=== PATIENT | male | born 1955 | race Caucasian/White ===

== ENCOUNTER 2017-07-26 21:51 | Emergency (ER) | payer MEDICAID ==
[2017-07-26 22:14] VITALS: PULSE 68; TEMP 98.4
--- NOTE | 2017-07-26 23:07 | C.PDOC ---
History Of Present Illness 61 y/o male with a history of DM presents to the ED with lower extremity swelling. Patient is complaining of right calf swelling which he noticed earlier today. Denies any recent travel or trauma. PMD: Dr. Maciel Subramanian Time Seen by Provider: 07/26/17 22:24 Chief Complaint (Nursing): Lower Extremity Problem/Injury History Per: Patient History/Exam Limitations: no limitations Onset/Duration Of Symptoms: Hrs Current Symptoms Are (Timing): Still Present Recent travel outside of the [place]: No Past Medical History Vital Signs: Last Vital Signs Temp 98.4 F 07/26/17 22:19 Pulse 68 07/26/17 23:45 Resp 20 07/26/17 23:45 BP 150/75 07/26/17 23:45 Pulse Ox 100 07/26/17 23:45 - Medical History PMH: Diabetes, HTN, Hypercholesterolemia Surgical History: No Surg Hx Family History: States: No Known Family Hx - Social History Hx Tobacco Use: No Hx Alcohol Use: No Hx Substance Use: No - Immunization History Hx Tetanus Toxoid Vaccination: No Hx Influenza Vaccination: No Hx Pneumococcal Vaccination: No Review Of Systems Except As Marked, All Systems Reviewed And Found Negative. Musculoskeletal: Positive for: Leg Pain (right calf edema) Physical Exam - Physical Exam Appears: Well, Non-toxic, No Acute Distress Skin: Normal Color, Warm, Dry Head: Atraumatic, Normacephalic Eye(s): bilateral: Normal Inspection, PERRL, EOMI Nose: Normal Throat: Normal Neck: Normal Cardiovascular: Rhythm Regular, No Murmur Respiratory: Normal Breath Sounds, No Decreased Breath Sounds Gastrointestinal/Abdominal: Normal Exam Back: Normal Inspection, No CVA Tenderness, No Vertebral Tenderness Extremity: Normal ROM, Calf Tenderness (right) Neurological/Psych: Oriented x3 ED Course And Treatment - Laboratory Results Result Diagrams: 07/26/17 23:08 07/26/17 23:08 O2 Sat by Pulse Oximetry: 96 (RA) Pulse Ox Interpretation: Normal Disposition - Disposition Disposition: HOME/ ROUTINE Disposition Time: 23:00 Condition: STABLE Additional Instructions: return to er with worsening symptoms or concerns. please return tomorrow at 8 am for ultrasound Instructions: Deep Vein Thrombosis (Blood Clots in the Legs) (DC), Dependent Edema (DC) Forms: [employer] (Nauruan) - Clinical Impression Clinical Impression: Leg swelling
[2017-07-26 23:13] LABS: BASO % 0.6 % (0.0-2.0); EOS # 0.2 K/uL (0.0-0.7); EOS % 3.3 % (0.0-4.0); HEMOGLOBIN 13.1 g/dL (12.0-18.0); LYMPH # 2.4 K/uL (1.0-4.3); LYMPH % 46.3 % (20.0-40.0); MEAN CELL VOLUME 87.1 fL (80.0-94.0); MEAN CORPUSCULAR HEMOGLOBIN 30.7 pg (27.0-31.0); MEAN CORPUSCULAR HGB CONC 35.3 g/dL (33.0-37.0); MEAN PLATELET VOLUME 8.3 fL (7.2-11.7); MONO # 0.5 K/uL (0.0-0.8); MONO % 10.3 % (0.0-10.0); NEUT # 2.1 K/uL (1.8-7.0); NEUT % 39.5 % (50.0-75.0); NRBC % 0.2 % (0.0-2.0); RBC 4.26 Mil/uL (4.40-5.90); RED CELL DISTRIBUTION WIDTH 13.4 % (11.5-14.5); WHITE BLOOD COUNT 5.2 K/uL (4.8-10.8)
[2017-07-26 23:23] LABS: ALB/GLOB RATIO 1.2 (1.0-2.1); ALBUMIN 3.7 g/dL (3.5-5.0); ALT/SGPT 21 U/L (21-72); AST/SGOT 18 U/L (17-59); BLOOD UREA NITROGEN 13 mg/dL (9-20); CALCIUM 8.4 mg/dl (8.6-10.4); GFR AFRICAN-AMERICAN > 60; GFR NON-AFRICAN AMERICAN > 60
[2017-07-26 23:27] LABS: PROTHROMBIN TIME 10.9 SECONDS (9.7-12.2)
[2017-07-26] MEDS ORDERED: Enoxaparin 150 mg Syringe SC STA (23:34)
[2017-07-27] MEDS ORDERED: Enoxaparin 100 mg Syringe ONE (00:07)
[2017-07-27] MEDS ORDERED: Enoxaparin 30 mg Syringe ONE (00:08)
[2017-07-27 00:22] VITALS: BP 150/75; RESP 20
[2017-07-31 13:31] VITALS: O2SAT 96
== END 2017-07-26 23:45 | disposition home or self-care (01) ==
LOC: C.ER 21:51
DX: M79.89 Other specified soft tissue disorders (principal)
CPT/HCPCS: 80053; 85025; 85378; 85610; 85730; 96372; 99285; J1650

== ENCOUNTER 2017-07-27 11:02 | Emergency (ER) | payer MEDICAID ==
[2017-07-27 11:12] VITALS: RESP 18
[2017-07-27 13:11] VITALS: BP 168/78; PULSE 76; TEMP 98.6; O2SAT 98
--- NOTE | 2017-07-27 13:12 | C.PDOC ---
History Of Present Illness The patient presents the Ed for venous doppler of the lower extremity. Patient was seen in the ED yesterday for right lower extremity pain and swelling. Patient was found to have a positive D-dimer and was instructed to return today for Ultrasound. Denies trauma, fever, rash, numbness, weakness, chest pain, SOB. Time Seen by Provider: 07/27/17 11:28 Chief Complaint (Nursing): Medical Clearance History Per: Patient History/Exam Limitations: no limitations Onset/Duration Of Symptoms: Days Current Symptoms Are (Timing): Still Present Past Medical History Reviewed: Historical Data, Nursing Documentation, Vital Signs Vital Signs: Last Vital Signs Temp 98.6 F 07/27/17 13:10 Pulse 76 07/27/17 13:10 Resp 18 07/27/17 13:10 BP 168/78 H 07/27/17 13:10 Pulse Ox 98 07/27/17 15:48 - Medical History PMH: Diabetes, HTN, Hypercholesterolemia Family History: States: No Known Family Hx - Social History Hx Tobacco Use: No Hx Alcohol Use: No Hx Substance Use: No - Immunization History Hx Tetanus Toxoid Vaccination: No Hx Influenza Vaccination: No Hx Pneumococcal Vaccination: No Review Of Systems Except As Marked, All Systems Reviewed And Found Negative. Physical Exam - Physical Exam Appears: Non-toxic, No Acute Distress Skin: Normal Color, Warm, No Rash Head: Atraumatic, Normacephalic Eye(s): bilateral: Normal Inspection, PERRL, EOMI Oral Mucosa: Moist Neck: Normal ROM, Supple Chest: Symmetrical, No Tenderness Cardiovascular: Rhythm Regular, No Friction Rub, No Murmur Respiratory: Normal Breath Sounds, No Wheezing Extremity: Normal ROM, Capillary Refill (< 2 sec), Other ((+) 1+ edema to the right lower extrem. ) Extremity: Bilateral: Normal Color And Temperature Pulses: Left Dorsalis Pedis: Normal, Right Dorsalis Pedis: Normal Neurological/Psych: Oriented x3, Normal Speech, Normal Motor, Normal Sensation Gait: Steady ED Course And Treatment O2 Sat by Pulse Oximetry: 98 (on RA) Pulse Ox Interpretation: Normal Medical Decision Making Medical Decision Making: Venous Doppler was negative for DVT. There is no signs of cellulitis or injury. On re-exam, the patient is ambulatory in the ED with steady gait. Disposition - Disposition Referrals: Maciel Subramanian MD [Staff Provider] - Disposition: HOME/ ROUTINE Disposition Time: 13:11 Condition: GOOD Additional Instructions: follow up with the medical doctor within 1-2 days. Return if worsened. Instructions: Dependent Edema (DC) Forms: [facility] (Azeri) - Clinical Impression Clinical Impression: Leg edema
--- NOTE | 2017-07-28 12:50 | VASCLAB ---
PROCEDURE: Right Lower Extremity Venous Duplex Exam. HISTORY: SWELLING PRIORS: None. TECHNIQUE: Right common femoral, femoral, popliteal and posterior tibial, peroneal and great saphenous veins were evaluated. Flow was assessed with color Doppler, compressibility, assessment of phasic flow and augmentation response. Report prepared by Vanita Engle RDCS, RVS FINDINGS: RIGHT: 1. Common Femoral Vein: 1.1. Compressibility - Fully compressible: Thrombus - None: Flow - Phasic: Augmentation -Normal: Reflux - None. 2. Femoral Vein: 2.1. Compressibility - Fully compressible: Thrombus - None: Flow - Phasic: Augmentation -Normal: Reflux - None. 3. Popliteal Vein: 3.1. Compressibility - Fully compressible: Thrombus - None: Flow - Phasic: Augmentation -Normal: Reflux - None. 4. Posterior Tibial Vein: 4.1. Compressibility - Fully compressible: Thrombus - None: Flow - Phasic: Augmentation -Normal: Reflux - None. 5. Peroneal Vein: 5.1. Compressibility - Fully compressible: Thrombus - None: Flow - Phasic: Augmentation -Normal: Reflux - None. 6. Great Saphenous Vein: 6.1. Compressibility - Fully compressible: Thrombus -None: Flow - Phasic: Augmentation - Normal: Reflux - None. OTHER FINDINGS: IMPRESSION: No evidence of deep or superficial vein thrombosis of the right lower extremity with excellent venous flow. Normal valve function noted of the right side. Normal venous flow noted in the left common femoral vein.
== END 2017-07-27 13:17 | disposition home or self-care (01) ==
LOC: C.ER 11:02
DX: R60.0 Localized edema (principal); E11.9 Type 2 diabetes mellitus without complications; E78.00 Pure hypercholesterolemia, unspecified; I10 Essential (primary) hypertension